=== PATIENT | male | born 1955 | race Caucasian/White ===

== ENCOUNTER 2017-01-10 16:05 | Emergency (ER) | payer SELFPAY ==
[~2017-01-10] VITALS: Ht 195.6 cm; Wt 114.0 kg
[2017-01-10 16:07] VITALS: BP 129/79; PULSE 86; RESP 20; TEMP 98.5; O2SAT 98
--- NOTE | 2017-01-10 16:33 | PD ---
Physical Exam Date Seen by Provider: Jan 10, 2017 Time Seen by Provider: 16:26 Narrative Pt is a 61 year old male presenting to the ED for evaluation of SOB with exertion. Symptoms started a week ago, pt was then evaluated by PCP [facility]. The [facility] did not adjust this HCTZ or ass Lasix. When called to get an appt today they told him to come to the ED. Easily fatigued. Pt has a rescue inhaler which he has been utilizing. Pt states he has been diaphoretic at times over the last few days. PMHx HTN, CHF, Asthma, daily ASA. VSS, awaiting bed placement. Data Data Last Documented VS Vital Signs Date Time Temp Pulse Resp B/P Pulse Ox O2 Delivery O2 Flow Rate FiO2 01/10/17 16:07 98.5 86 20 129/79 98 Room Air MDM Supervised Visit with BJ: Jill Camarillo Jan 10, 2017 16:33
--- NOTE | 2017-01-10 17:27 | PD ---
HPI Chief Complaint: Edema Time Seen by Provider: 17:24 Travel History International Travel<30 days: No Contact w/Intl Traveler<30days: No Traveled to known affect area: No History of Present Illness HPI Patient comes in complaining of bilateral lower extremities ongoing since May of last year. Patient states he was in detention for 17 years up until about a month ago. Patient states he's been on Lasix for years secondary to bilateral lower extremity edema. Patient states the detention doctor approximately 8 months ago they switched him off his Lasix and put him on hydrochlorothiazide since then his swelling has not been well-controlled. Patient was able to elevate his legs improve edema, but this is no longer working. Patient states over the past month he has not had any medications until receiving it in the mail 2 days ago. Patient uncertain of his medications but states he is no longer on Lasix. Patient states he's had some increasing dyspnea on exertion. Denies any chest pain, nausea, vomiting, fevers , leg pain, or headaches. PFSH Past Medical History Cardiovascular Problems: Yes (HTN/CHF) Respiratory: Yes (ASTHMA) Social History Tobacco Use: Yes Substance Use: No Allergies-Medications (Allergen,Severity, Reaction): Coded Allergies: No Known Allergies (Unverified , 01/10/17) Reported Meds & Prescriptions Reported Meds & Active Scripts Active Potassium Chloride ER (Potassium Chloride) 10 Meq Cap 10 Meq PO DAILY take with lasix Lasix (Furosemide) 20 Mg Tab 20 Mg PO DAILY Reported Furosemide 40 Mg Tab 40 Mg PO DAILY Review of Systems Except as stated in HPI: all other systems reviewed are Neg Physical Exam Narrative GENERAL: Well-developed, overly nourished, in no acute distress, and non-ill appearing. SKIN: Focused skin assessment warm and dry. HEAD: Atraumatic. Normocephalic. EYES: Pupils equal and round. EOMI. No scleral icterus. No injection or drainage. ENT: No nasal bleeding or discharge. Mucous membranes pink and moist. NECK: Trachea midline. Supple. No nuclear rigidity. CARDIOVASCULAR: Regular rate and rhythm. No murmur appreciated. RESPIRATORY: No accessory muscle use. No respiratory distress. Clear to auscultation. Breath sounds equal bilaterally. GASTROINTESTINAL: Abdomen soft, non-tender, nondistended. Hepatic and splenic margins not palpable. Normal bowel sounds 4. No pulsatile mass. MUSCULOSKELETAL: No obvious deformities. No clubbing. No cyanosis. 2+ pitting bilateral lower extremities. Full range of motion. NEUROLOGICAL: Awake and alert. No obvious cranial nerve deficits. Motor grossly within normal limits. Normal speech. PSYCHIATRIC: Appropriate mood and affect; insight and judgment normal. Data Data Last Documented VS Vital Signs Date Time Temp Pulse Resp B/P Pulse Ox O2 Delivery O2 Flow Rate FiO2 01/10/17 19:25 73 17 126/69 100 Room Air 01/10/17 16:07 98.5 Orders Complete Blood Count With Diff (01/10/17 17:20) Comprehensive Metabolic Panel (01/10/17 17:20) B-Type Natriuretic Peptide (01/10/17 17:20) Act Partial Throm Time (Ptt) (01/10/17 17:20) Prothrombin Time / Inr (Pt) (01/10/17 17:20) Magnesium (Mg) (01/10/17 17:20) Ckmb (Isoenzyme) Profile (01/10/17 17:20) Troponin I (01/10/17 17:20) Iv Access Insert/Monitor (01/10/17 17:20) Electrocardiogram (01/10/17 17:20) Ecg Monitoring (01/10/17 17:20) Oximetry (01/10/17 17:20) Oxygen Administration (01/10/17 17:20) Chest, Single Ap (01/10/17 17:20) Us Leg Venous Doppler Bilat (01/10/17 ) CKMB (01/10/17 17:30) CKMB% (01/10/17 17:30) Furosemide Inj (Lasix Inj) (01/10/17 19:00) Labs Laboratory Tests Test 01/10/17 17:30 White Blood Count 5.7 TH/MM3 Red Blood Count 5.35 MIL/MM3 Hemoglobin 15.6 GM/DL Hematocrit 45.8 % Mean Corpuscular Volume 85.6 FL Mean Corpuscular Hemoglobin 29.1 PG Mean Corpuscular Hemoglobin 34.0 % Concent Red Cell Distribution Width 15.5 % Platelet Count 192 TH/MM3 Mean Platelet Volume 8.7 FL Neutrophils (%) (Auto) 68.2 % Lymphocytes (%) (Auto) 19.9 % Monocytes (%) (Auto) 9.9 % Eosinophils (%) (Auto) 1.6 % Basophils (%) (Auto) 0.4 % Neutrophils # (Auto) 3.9 TH/MM3 Lymphocytes # (Auto) 1.1 TH/MM3 Monocytes # (Auto) 0.6 TH/MM3 Eosinophils # (Auto) 0.1 TH/MM3 Basophils # (Auto) 0.0 TH/MM3 CBC Comment DIFF FINAL Differential Comment Prothrombin Time 10.6 SEC Prothromb Time International 1.0 RATIO Ratio Activated Partial 26.6 SEC Thromboplast Time Sodium Level 139 MEQ/L Potassium Level 4.1 MEQ/L Chloride Level 104 MEQ/L Carbon Dioxide Level 27.9 MEQ/L Anion Gap 7 MEQ/L Blood Urea Nitrogen 16 MG/DL Creatinine 1.13 MG/DL Estimat Glomerular Filtration 66 ML/MIN Rate Random Glucose 84 MG/DL Calcium Level 9.5 MG/DL Magnesium Level 2.4 MG/DL Total Bilirubin 0.7 MG/DL Aspartate Amino Transf 23 U/L (AST/SGOT) Alanine Aminotransferase 32 U/L (ALT/SGPT) Alkaline Phosphatase 82 U/L Total Creatine Kinase 103 U/L Creatine Kinase MB 2.4 NG/ML Troponin I LESS THAN 0.02 NG/ML B-Type Natriuretic Peptide 7 PG/ML Total Protein 7.3 GM/DL Albumin 3.7 GM/DL [facility] Medical Decision Making Medical Screen Exam Complete: Yes Emergency Medical Condition: Yes Differential Diagnosis CHF exacerbation, DVT, dependent edema, electrolyte abnormality, other Narrative Course Patient in no obvious distress upon re-evaluation. All pertinent laboratory/ Radiology result(s) discussed with patient. Discussed patient with Dr. Durham, who saw and evaluated the patient and is in agreement with plan of care and disposition. Any questions/concerns in reference to patient diagnosis/ condition discussed and clarified prior to patient's discharge. Reinforced sheer importance of close follow up with patient's primary physician or primary care clinic. Instructed patient to return to ED immediately, if symptoms return/ worsen. Pt showed understanding of above instructions. Further instructions and recommendations were detailed in discharge paperwork. Pt ambulated without difficulty out of ED at discharge. Diagnosis Primary Impression: Bilateral lower extremity edema Patient Instructions: General Instructions, Leg Edema (ED) Additional Instructions: Follow-up with your primary care physician in 2-5 days for reevaluation. Take all medication as prescribed. Return to the emergency department if symptoms get worse. Med/Other Pt SpecificInfo: Prescription(s) given Scripts Potassium Chloride ER 10 Meq Cap10 Meq PO DAILY #7 CAP Ref 0 take with lasix Prov:Janie Durham DO 01/10/17 Furosemide (Lasix)20 Mg Tab20 Mg PO DAILY #7 TAB Ref 0 Prov:Janie Durham DO 01/10/17 Disposition: 01 DISCHARGE HOME Condition: Stable Fran Singh Jan 10, 2017 17:27
[2017-01-10 17:46] VITALS: BP 134/85; PULSE 68; RESP 22; O2SAT 96
[2017-01-10 17:49] LABS: AUTOMATED NEUTROPHIL # 3.9 TH/MM3 (1.8-7.7); BASOPHIL % 0.4 % (0.0-2.0); EOSINOPHIL # 0.1 TH/MM3 (0-0.4); EOSINOPHIL % 1.6 % (0.0-4.0); HEMATOCRIT 45.8 % (39.0-51.0); HEMO FLAGS DIFF FINAL; LYMPH % 19.9 % (9.0-44.0); LYMPHOCYTE # 1.1 TH/MM3 (1.0-4.8); MEAN CELL VOLUME 85.6 FL (80.0-100.0); MEAN CORPUSCULAR HEMOGLOBIN 29.1 PG (27.0-34.0); MONO % 9.9 % (0.0-8.0); NEUT % 68.2 % (16.0-70.0); PLATELET COUNT 192 TH/MM3 (150-450); RED BLOOD COUNT 5.35 MIL/MM3 (4.50-5.90); RED CELL DISTRIBUTION WIDTH 15.5 % (11.6-17.2); WHITE BLOOD COUNT 5.7 TH/MM3 (4.0-11.0)
[2017-01-10] MEDS ORDERED: FURO40TA PO (17:53)
[2017-01-10 18:00] LABS: APTT (PATIENT) 26.6 SEC (24.3-30.1); PROTHROMBIN TIME - PATIENT 10.6 SEC (9.8-11.6)
[2017-01-10 18:10] LABS: ANION GAP 7 MEQ/L (5-15); AST (GOT) 23 U/L (15-37); BICARBONATE 27.9 MEQ/L (21.0-32.0); BLOOD UREA NITROGEN 16 MG/DL (7-18); CHLORIDE 104 MEQ/L (98-107); GLOMERULAR FILTRATION RATE 66 ML/MIN (>89); MAGNESIUM 2.4 MG/DL (1.5-2.5); POTASSIUM 4.1 MEQ/L (3.5-5.1); SODIUM (NA) 139 MEQ/L (136-145)
[2017-01-10 18:15] LABS: ALKALINE PHOSPHATASE 82 U/L (45-117); ALT (GPT) 32 U/L (12-78); CREATINE KINASE 103 U/L (39-308); TOTAL BILIRUBIN ADULT 0.7 MG/DL (0.2-1.0)
[2017-01-10 18:27] LABS: CKMB 2.4 NG/ML (0.5-3.6)
--- NOTE | 2017-01-10 18:36 | RADRPT ---
EXAM DATE/TIME: 01/10/2017 18:08 [facility] COMPARISON: No previous studies available for comparison. INDICATIONS : Cough, shortness of breath, and congestion. MEDICAL HISTORY : None. SURGICAL HISTORY : None. ENCOUNTER: Initial ACUITY: 1 week PAIN SCORE: 0/10 LOCATION: chest FINDINGS: A single view of the chest demonstrates the lungs to be symmetrically aerated without evidence of mas s, infiltrate or effusion. The cardiomediastinal contours are unremarkable. Osseous structures are intact. CONCLUSION: No acute disease. Ry Carl Jr., MD on January 10, 2017 at 18:34 Board Certified Radiologist. This report was verified electronically.
--- NOTE | 2017-01-10 18:55 | RADRPT ---
EXAM DATE/TIME: 01/10/2017 17:30 [facility] COMPARISON: No previous studies available for comparison. INDICATIONS : Bilateral leg swelling. MEDICAL HISTORY : Hypertension. Congestive heart failure. Asthma. SOB. Anticoagulant therapy, Aspirin. SURGICAL HISTORY : None. ENCOUNTER: Initial ACUITY: 2 weeks PAIN SCORE: 0/10 LOCATION: Bilateral leg. TECHNIQUE: Venous ultrasound of the left and right leg was performed from the inguinal ligament to the proximal calf. Real-time, color Doppler and spectral tracing, compression and augmentation techniques were us ed. FINDINGS: RIGHT LEG: There is normal compressibility of the deep venous system from the inguinal region to the proximal ca lf. No echogenic clot is seen in the lumen of the common femoral, femoral, popliteal, and posterior tibial veins. There is a normal response of the venous system to proximal and distal augmentation an d respiration. LEFT LEG: There is normal compressibility of the deep venous system from the inguinal region to the proximal ca lf. No echogenic clot is seen in the lumen of the common femoral, femoral, popliteal, and posterior tibial veins. There is a normal response of the venous system to proximal and distal augmentation an d respiration. CONCLUSION: No DVT. Subcutaneous edema bilaterally. Ry Carl Jr., MD on January 10, 2017 at 18:52 Board Certified Radiologist. This report was verified electronically.
[2017-01-10] MEDS ORDERED: FUROSEMIDE 20 MG/2 ML VIAL IV PUSH ONE (19:00)
[2017-01-10] MEDS ORDERED: POTA10CA PO (19:12)
[2017-01-10] MEDS ORDERED: FURO1TAB62 PO (19:12)
[2017-01-10 19:25] VITALS: BP 126/69; PULSE 73; RESP 17; O2SAT 100
== END 2017-01-10 19:40 | disposition home or self-care (01) ==
LOC: NEPE 16:05
DX: R60.0 Localized edema (principal); R06.00 Dyspnea, unspecified; R53.83 Other fatigue; R61 Generalized hyperhidrosis; I10 Essential (primary) hypertension; Z72.0 Tobacco use; Z79.82 Long term (current) use of aspirin; Z79.899 Other long term (current) drug therapy; Z86.79 Personal history of other diseases of the circulatory system; Z87.09 Personal history of other diseases of the respiratory system
CPT/HCPCS: 71010; 80053; 82550; 82552; 83735; 83880; 84484; 85025; 85610; 85730; 93970; 96374; 99284; J1940

== ENCOUNTER 2017-12-29 18:50 | Emergency (ER) | payer OTHER ==
[~2017-12-29 18:50] MED LIST: FURO1TAB62 PO; FURO40TA PO; POTA10CA PO
[2017-12-29 19:33] VITALS: BP 124/65; PULSE 58; RESP 16; TEMP 98.3; O2SAT 97
--- NOTE | 2017-12-29 20:53 | RADRPT ---
EXAM DATE/TIME: 12/29/2017 20:22 [facility] COMPARISON: No previous studies available for comparison. INDICATIONS : Right hip pain after fall today. Unable to bear weight. MEDICAL HISTORY : Hypertension. Congestive heart failure. Asthma. SURGICAL HISTORY : None. ENCOUNTER: Initial ACUITY: 1 day PAIN SCORE: 10/10 LOCATION: Right hip. FINDINGS: An acute fracture is not seen. The hip joints are normally aligned. There is hypertrophic change arou nd the greater trochanters bilaterally. There is degenerative change in the lower lumbar spine. There is chronic hypertrophic change at the iliac crest regions bilaterally being more prominent on the le ft. There is a focal area of sclerosis at the left femoral head. This is nonspecific. CONCLUSION: 1. No acute abnormality seen. 2. Degenerative change in the lower lumbar spine. 3. Focal sclerosis at the superior left femoral head. This is nonspecific. It could represent a bone island. Other causes for a sclerotic lesion cannot be excluded. Angel Gongora MD on December 29, 2017 at 20:48 Board Certified Radiologist. This report was verified electronically.
--- NOTE | 2017-12-29 20:59 | RADRPT ---
EXAM DATE/TIME: 12/29/2017 20:24 [facility] COMPARISON: No previous studies available for comparison. INDICATIONS : Lower back pain after fall today. MEDICAL HISTORY : Hypertension. Congestive heart failure. Asthma. SURGICAL HISTORY : None. ENCOUNTER: Initial ACUITY: 1 day PAIN SCORE: 10/10 LOCATION: Lower back. FINDINGS: Two view examination was performed. There are five non-rib bearing vertebral bodies. The vertebral bodies are in normal alignment in the sagittal plane without evidence of subluxation or scoliosis. T here is a minimal levocurvature of the lumbar spine. The disc spaces are maintained. Spurs are seen throughout consistent with DISH. The pedicles are intact. There is degenerative change at the L4-L5 and L5-S1 facet regions. Bony mineralization is normal. No fracture is identified. CONCLUSION: Hypertrophic change as described above. An acute bony abnormality is not seen. Angel Gongora MD on December 29, 2017 at 20:55 Board Certified Radiologist. This report was verified electronically.
[2017-12-29] MEDS ORDERED: MORPHINE SULFATE 2 MG/ML SYRINGE IM ONE (21:45)
--- NOTE | 2017-12-29 21:45 | PD ---
HPI Chief Complaint: Fall Time Seen by Provider: 21:37 Travel History International Travel<30 days: No Contact w/Intl Traveler<30days: No Traveled to known affect area: No History of Present Illness HPI 62-year-old male here for evaluation of right hip pain after a mechanical trip and fall on a tree root at around 9:00 AM today. He reports that he has been able to ambulate, however with difficulty, requiring the use of a cane. Pain has been constant, moderate to severe, worse with movements and weightbearing. He denies any other injuries. No head or neck pain or injury. He tried taking ibuprofen with only mild relief of symptoms. PFSH Past Medical History Cardiovascular Problems: Yes (HTN/CHF) Congestive Heart Failure: Yes COPD: Yes Diminished Hearing: Yes ([place]) Respiratory: Yes (ASTHMA) Myocardial Infarction: Yes (x2) Past Surgical History Cardiac Surgery: Yes Coronary Stent: Yes (x1) Social History Alcohol Use: No Tobacco Use: No Substance Use: No Allergies-Medications (Allergen,Severity, Reaction): Coded Allergies: No Known Allergies (Unverified , 01/10/17) Reported Meds & Prescriptions Reported Meds & Active Scripts Active Potassium Chloride ER (Potassium Chloride) 10 Meq Cap 10 Meq PO DAILY take with lasix Lasix (Furosemide) 20 Mg Tab 20 Mg PO DAILY Reported Furosemide 40 Mg Tab 40 Mg PO DAILY Review of Systems Except as stated in HPI: all other systems reviewed are Neg Physical Exam Narrative GENERAL: Well-developed, well-nourished, comfortable, no apparent distress. SKIN: Focused skin assessment warm/dry. HEAD: Atraumatic. Normocephalic. EYES: Pupils equal and round. No scleral icterus. No injection or drainage. ENT: No nasal bleeding or discharge. Mucous membranes pink and moist. NECK: Trachea midline. No JVD. No midline cervical spine step-off or tenderness. CARDIOVASCULAR: Regular rate and rhythm. Bilateral dorsalis pedis pulses are brisk and equal. RESPIRATORY: No accessory muscle use. Clear to auscultation. Breath sounds equal bilaterally. GASTROINTESTINAL: Abdomen soft, non-tender, nondistended. MUSCULOSKELETAL: Right hip with moderate diffuse tenderness anteriorly and laterally without obvious deformity, with normal range of motion, without shortening or rotational deformities. The rest of his joints and extremities are without deformity, without tenderness, with normal range of motion. NEUROLOGICAL: Awake and alert. No obvious cranial nerve deficits. Motor grossly within normal limits. Normal speech. PSYCHIATRIC: Appropriate mood and affect; insight and judgment normal. Data Data Last Documented VS Vital Signs Date Time Temp Pulse Resp B/P (MAP) Pulse Ox O2 Delivery O2 Flow Rate FiO2 12/29/17 19:33 98.3 58 16 124/65 (84) 97 Orders Orders Hip, Uni(Ap&Lat) W Ap Pelvis (12/29/17 ) Spine, Lumbar - Ltd (Ap & Lat) (12/29/17 ) Ct Pelvis W/O Iv Contrast (12/29/17 ) Morphine Inj (Morphine Inj) (12/29/17 21:45) MDM Medical Decision Making Medical Screen Exam Complete: Yes Emergency Medical Condition: Yes Differential Diagnosis Right hip fracture versus contusion Narrative Course Right hip x-ray ordered in triage: CONCLUSION: 1. No acute abnormality seen. 2. Degenerative change in the lower lumbar spine. 3. Focal sclerosis at the superior left femoral head. This is nonspecific. It could represent a bone island. Other causes for a sclerotic lesion cannot be excluded. X-ray lumbar spine ordered in triage: CONCLUSION: Hypertrophic change as described above. An acute bony abnormality is not seen. CT pelvis: CONCLUSION: 1. No acute abnormality seen. 2. Chronic hypertrophic change. 3. Two sclerotic lesions in the left proximal femur. These are nonspecific. They could represent bone islands. Other causes for sclerotic lesions cannot be excluded. Patient was made aware of all findings. Again he has normal range of motion in the right hip and is able to ambulate, however this causes pain. He was provided morphine here in the emergency department with improvement in pain. He is provided a copy of the CT pelvis report and was advised to follow-up with his primary care physician this week. He states he will make an appointment with the [facility]. I will also given the name of the orthopedist utilization coordinator whom he can also try to make an appointment with as an outpatient. He was advised on when to return to the emergency department. He verbalizes understanding and agreement with plan. Diagnosis Primary Impression: Contusion of right hip Qualified Codes: S70.01XA - Contusion of right hip, initial encounter Additional Impression: Bone lesion Referrals: Stanton Fontanez MD 3 days Orthopedist Primary Care Physician 3 days Additional Instructions: Follow-up with your primary care physician this week. Follow-up with orthopedist Dr. Fontanez or an orthopedist of your choice this week. Return to the emergency department for worsening symptoms or any other concerns. Scripts Naproxen (Naproxen) 500 Mg Tab 500 MG PO BID for 14 Days, #28 TAB 0 Refills Prov: Ervin Kenney MD 12/29/17 Disposition: 01 DISCHARGE HOME Condition: Stable Ervin Kenney MD Dec 29, 2017 21:45
--- NOTE | 2017-12-29 22:52 | RADRPT ---
EXAM DATE/TIME: 12/29/2017 22:19 [facility] COMPARISON: No previous studies available for comparison. INDICATIONS : Trauma; fall right hip pain. ORAL CONTRAST: No oral contrast ingested. RADIATION DOSE: 15.96 CTDIvol (mGy) MEDICAL HISTORY : Cardiovascular disease. Congestive heart failure. SURGICAL HISTORY : None. ENCOUNTER: Initial ACUITY: 1 day PAIN SCALE: 5/10 LOCATION: Right pelvis TECHNIQUE: Volumetric scanning of the pelvis was performed. Using automated exposure control and adjustment of the mA and/or kV according to patient size, radiation dose was kept as low as reasonably achievable t o obtain optimal diagnostic quality images. DICOM format image data is available electronically for review and comparison. FINDINGS: BOWEL/MESENTERY: The visualized small and large bowel demonstrate no acute abnormality. There is no free fluid. BLADDER: There is no wall thickening or mass. RETROPERITONEUM: There is no aneurysm or lymphadenopathy. REPRODUCTIVE: Within normal limits. INGUINAL: There is no lymphadenopathy or hernia. MUSCULOSKELETAL: No fracture is seen. There is degenerative change in the lower lumbar spine. There is hypertrophic ch kathy seen at the greater and lesser trochanters. There is hypertrophic change at the iliac crest zena ons. There is a focal 1.1 cm of sclerosis at the superior lateral aspect of the left femoral head and a 1.2 cm linear area of sclerosis at the base of the left greater trochanter. CONCLUSION: 1. No acute abnormality seen. 2. Chronic hypertrophic change. 3. Two sclerotic lesions in the left proximal femur. These are nonspecific. They could represent bone islands. Other causes for sclerotic lesions cannot be excluded. Angel Gongora MD on December 29, 2017 at 22:45 Board Certified Radiologist. This report was verified electronically.
[2017-12-29] MEDS ORDERED: NAPR500T2 PO (23:01)
== END 2017-12-29 23:53 | disposition home or self-care (01) ==
LOC: NEPE 18:50
DX: S70.01XA Contusion of right hip, initial encounter (principal); M89.9 Disorder of bone, unspecified; W01.0XXA Fall on same level from slipping, tripping and stumbling without subsequent striking against object, initial encounter; I11.0 Hypertensive heart disease with heart failure; I50.9 Heart failure, unspecified; I25.2 Old myocardial infarction; J44.9 Chronic obstructive pulmonary disease, unspecified; Z95.5 Presence of coronary angioplasty implant and graft
CPT/HCPCS: 72100; 72192; 73502; 96372; 99284; J2270